=== PATIENT | female | born 1975 | race Two or more races ===

== ENCOUNTER 2025-02-28 12:17 | Emergency (ER) | payer OTHER ==
[~2025-02-28] VITALS: Ht 170.2 cm; Wt 93.0 kg
[2025-02-28] MEDS ORDERED: PHOSLO667 M1 PO (12:45)
[2025-02-28] MEDS ORDERED: ONDANSETRON HCL 2 MG/ML VIAL IV STA (12:57)
[2025-02-28] MEDS ORDERED: FAMOTIDINE/PF 20 MG/2 ML VIAL IV STA (12:57)
[2025-02-28] MEDS ORDERED: LORazepam 2 MG/ML VIAL IV STA (12:57)
[2025-02-28] MEDS ORDERED: 0.9 % SODIUM CHLORIDE 1,000 ML IV SCH (13:00)
[2025-02-28] MEDS ORDERED: FAMOTIDINE/PF 20 MG/2 ML VIAL ONE (15:28)
[2025-02-28] MEDS ORDERED: ONDANSETRON HCL 2 MG/ML VIAL ONE (15:28)
[2025-02-28 16:03] LABS: BASO % 0.3 % (0.1-1.2); EOS # 0.10 (0.04-0.54); EOS % 1.0 % (0.7-7.0); LYMPH # 2.04 (1.18-3.74); LYMPH % 20.6 % (19.3-53.1); MEAN PLATELET VOLUME 10.20 fl (9.4-12.4); MONO # 0.57 (0.24-0.82); MONO % 5.7 % (4.7-12.5); NEUT # 7.15 (1.56-6.13); NEUT % 72.1 % (34.0-71.1); RED CELL DISTRIBUTION WIDTH 16.2 % (11.6-14.4)
[2025-02-28] MEDS ORDERED: LORazepam 2 MG/ML VIAL ONE (16:43)
[2025-02-28 16:49] LABS: URINE APPEARANCE Clear; URINE BILIRRUBIN Negative (NEGATIVE); URINE BLOOD Large; URINE COLOR Yellow; URINE GLUCOSE Negative (NEGATIVE); URINE KETONE 15 (NEGATIVE); URINE LEUKOCYTE Negative; URINE NITRATE Negative; URINE PROTEIN Negative (NEGATIVE); URINE UROBILINOGEN 0.2 E.U./dl
[2025-02-28 16:51] LABS: ALT/SGPT 17 U/L (12-78); AST/SGOT 14 U/L (15-37); BILIRUBIN TOTAL 0.30 mg/dL (0.3-1.2); BUN CREA RATIO 13 (7.0-25.0); CREATININE SERUM 0.70 mg/dL (0.55-1.02); GFR 88.57; GLOBULINA 4.0 G/DL (2.4-3.5); GLUCOSE FASTING 84 mg/dL (65-100); OSMOLALITY SERUM 279 MOSM/KG (275-295)
[2025-02-28 16:53] LABS: URINE BACTERIA 16.7 uL (0.0-1933); URINE EPITHELIAL CELLS 1.8 uL (0.0-38.8); URINE RBC 932.8 uL (0.0-20.8); URINE WBC 3.6 uL (0.0-23.2)
[2025-02-28 17:10] LABS: URINE CAST 0.00 uL (0.0-1.40)
[2025-02-28] MEDS ORDERED: BUTALB/ACETAMINOPHEN/CAFFEINE 1 TAB TABLET PO ONE ×2 (18:41→19:00)
[2025-02-28] MEDS ORDERED: ATARAX25 MG PO (18:42)
== END 2025-02-28 20:09 | disposition home or self-care (01) ==
LOC: ER 12:17 → EMR PED 12:17 → ER 14:02
PROVIDERS: Physician Assistant Medical
DX: F41.0 Panic disorder [episodic paroxysmal anxiety] (principal); F41.8 Other specified anxiety disorders; R07.89 Other chest pain; Z88.8 Allergy status to other drugs, medicaments and biological substances